=== PATIENT | male | born 1995 | race Caucasian/White ===

== ENCOUNTER 2017-01-21 20:16 | Emergency (ER) | payer SELFPAY ==
[~2017-01-21] VITALS: Ht 175.3 cm; Wt 56.7 kg
[2017-01-21 20:29] VITALS: BP 141/75
[2017-01-21] MEDS ORDERED: LIDOCAINE 1% / SOD BICARB 8.4% 20 ML VIAL. IJ ONE (20:34)
[2017-01-21] MEDS ORDERED: DIPHTH,PERTUSS(ACELL),TET TOX 0.5 ML DISP.SYRIN. VAX IM ONE (21:15)
--- NOTE | 2017-01-21 21:31 | PHYS DOC ---
Past Medical History Past Medical History: Other Additional Past Medical Histor: MOOD DISORDER Past Surgical History: No Surgical History Alcohol Use: None Drug Use: None Adult General Chief Complaint Chief Complaint: LACERATION/AVULSION HPI HPI Patient is a 21 year old presents with abrasions to both hands after punching a brick wall. Patient has minimal abrasions his left hand, but has multiple abrasions and laceration to his right hand specifically over his DIP joint of his middle finger. Tetanus status not up-to-date Review of systems: Constitutional: Denies fever or chills Eyes: Denies change in visual acuity, redness, or eye pain HENT: Denies nasal congestion or sore throat Respiratory: Denies cough or shortness of breath All other review systems negative except as documented in the history of present illness portion. Physical exam: Constitutional: Well developed, well nourished, no acute distress, non-toxic appearance. HENT: Normocephalic, atraumatic, bilateral external ears normal, nose normal. Eyes: PERRLA, EOMI, conjunctiva normal, no discharge. Neck: Normal range of motion, no tenderness, supple, no stridor. Cardiovascular:Heart rate regular rhythm, Lungs & Thorax: Bilateral breath sounds clear to auscultation Abdomen: Bowel sounds normal, soft, no tenderness, no masses, no pulsatile masses. Skin: Warm, dry, no erythema, no rash. Back: No tenderness, no CVA tenderness. Extremities: Multiple abrasions to right and left hand over all his knuckles. 3 center laceration over his DIP joint of his right hand, middle finger Neurologic: Alert and oriented X 3, normal motor function, normal sensory function, no focal deficits noted. Psychologic: Affect normal, judgement normal, mood normal. Assessment and plan Blunt trauma secondary to punching a brick wall. X-ray of right hand reveals no acute fracture. Patient's left handed superficial abrasions but no point bony tenderness and no swelling. No x-ray was obtained. She has full range of motion of all fingers. Patient has full range of motion of isolated DIP and PIP joints of all fingers of both hands. Assessment and plan\ Suture note: Laceration right middle finger, wound irrigated with approximately 200 mL of saline and soaked in soapy solution. 2 mL of buffered lidocaine were utilized to infiltrate the skin with adequate anesthesia obtained. 3 times 4-0 Ethilon sutures simple interrupted placed to the laceration to his DIP joint of his middle finger. Patient tolerated procedure well Patient's instructed to have a wound check in 2 days and to return to the ER in 10 days for suture removal. Tetanus status is updated. No indication for antibiotics at this time. Neosporin, clean wrap, aluminum/foam splint applied. Current Medications Current Medications Current Medications Medications (Trade) Dose Ordered Sig/[place] Start Time Stop Time Status Last Admin Dose Admin Diphtheria/ Tetanus/Acell Pertussis (Boostrix) 0.5 ml ONCE ONCE 01/21/17 21:15 01/21/17 21:16 DC Lidocaine/Sodium Bicarbonate (Buffered Lidocaine 1%) 20 ml STK-MED ONCE 01/21/17 20:34 01/21/17 20:35 DC Allergies Allergies Allergies Coded Allergies Type Severity Reaction Last Updated Verified Penicillins Allergy Intermediate 01/21/17 Yes Current Patient Data Vital Signs Vital Signs Date Time Temp Pulse Resp B/P (MAP) Pulse Ox O2 Delivery O2 Flow Rate FiO2 01/21/17 20:29 98.1 85 20 98 Room Air 98.1 EKG EKG [] Radiology/Procedures Radiology/Procedures [] Course & Med Decision Making Course & Med Decision Making Pertinent Labs and Imaging studies reviewed. (See chart for details) [] Dragon Disclaimer Dragon Disclaimer This electronic medical record was generated, in whole or in part, using a voice recognition dictation system. Departure Departure Impression: Primary Impression: Hand contusion Additional Impression: Laceration of middle finger of right hand without complication Disposition: 01 HOME, SELF-CARE Condition: IMPROVED Referrals: NO PCP (PCP) Patient Instructions: Hand Contusion, Sutured Wound Care Additional Instructions: Please follow up with your clinic/family doctor in 2 days for wound check. You will need to have your sutures removed in 10 days. Please leave splint on until sutures are removed. Problem Qualifiers RAKESH NEAL MD Jan 21, 2017 21:31
--- NOTE | 2017-01-22 08:37 | RAD ---
Three-view right hand study History: Punched brick wall with right fist. Pain Findings: No acute fracture or dislocation or osteolytic process is seen. There is a small focus of air within the medial soft tissues at the level of the distal fifth metacarpal bone. This could be related to a small laceration injury. In the oblique view, there is a tiny 1 mm linear radiopacity adjacent to the fifth proximal phalanx. A small foreign body is possible. IMPRESSION: No acute fracture. Possible small foreign body.
== END 2017-01-21 21:54 | disposition home or self-care (01) ==
LOC: ER 20:16
DX: S61.212A Laceration without foreign body of right middle finger without damage to nail, initial encounter (principal); S60.222A Contusion of left hand, initial encounter; S60.221A Contusion of right hand, initial encounter; Z88.0 Allergy status to penicillin; W22.8XXA Striking against or struck by other objects, initial encounter; Y93.89 Activity, other specified; Y92.89 Other specified places as the place of occurrence of the external cause; Y99.8 Other external cause status
CPT/HCPCS: 12002; 73130; 90471; 90715; 99284-25

== ENCOUNTER 2017-02-22 09:58 | Emergency (ER) | payer SELFPAY ==
[~2017-02-22] VITALS: Ht 175.3 cm; Wt 59.9 kg
--- NOTE | 2017-02-22 10:34 | RAD ---
Chest, 2 views, 02/22/2017: History: Syncope The heart size is normal. The lungs are clear. There is no evidence of pleural fluid. IMPRESSION: No acute cardiopulmonary abnormality is detected.
[2017-02-22 10:58] LABS: BASO # 0.1 x10^3/uL (0.0-0.2); BASO % 1 % (0-3); EOS % 3 % (0-3); HEMATOCRIT 47.5 % (39.0-53.0); HEMOGLOBIN 16.2 g/dL (13.0-17.5); LYMPH # 1.9 x10^3/uL (1.0-4.8); LYMPH % 29 % (24-48); MEAN CORPUSCULAR HEMOGLOBIN 31 pg (25-35); MEAN CORPUSCULAR HGB CONC 34 g/dL (31-37); MEAN CORPUSCULAR VOLUME 89 fL (79-100); MONO % 11 % (0-9); NEUT % 56 % (31-73); PLATELET COUNT 209 x10^3/uL (140-400); RED BLOOD COUNT 5.31 x10^6/uL (4.30-5.70); RED CELL DISTRIBUTION WIDTH 12.9 % (11.5-14.5); WHITE BLOOD COUNT 6.4 x10^3/uL (4.0-11.0)
[2017-02-22 11:08] LABS: CALCIUM 9.5 mg/dL (8.5-10.1); GFR 92.6; POTASSIUM 3.9 mmol/L (3.5-5.1)
--- NOTE | 2017-02-22 11:12 | PHYS DOC ---
Past Medical History Past Medical History: Other Additional Past Medical Histor: MOOD DISORDER Past Surgical History: No Surgical History Alcohol Use: None Drug Use: None Adult General Chief Complaint Chief Complaint: SYNCOPE HPI HPI Patient is a 21 year old male who presents with syncopal episode today. states he was walking at home when he felt lightheaded had brief loss of consciousness. Patient denies hitting his head, headache, neck pain. Denies palpitations, chest pain shortness of breath or any other symptoms prior to falling. Denies history of seizure disorder. No urinary incontinence. Denies biting tongue or lip. Patient denies history of hypoglycemia and a prior to episode. Patient also reports having a syncopal episode while at work yesterday. Similar in nature and not proceed with medical symptoms. Patient denies injury. No recent illnesses. No vomiting or diarrhea. No fever chills or sweats. No other acute symptoms or complaints. Patient is a current smoker, and drinks occasional alcohol. Denies drug use with exception of non-prescribed hydrocodone.[] Review of Systems Review of Systems Review symptoms as per history of present illness. All other review symptoms are negative. All other systems were reviewed and found to be within normal limits, except as documented in this note. Allergies Allergies Allergies Coded Allergies Type Severity Reaction Last Updated Verified Penicillins Allergy Intermediate 01/21/17 Yes Physical Exam Physical Exam Constitutional: Well developed, well nourished, no acute distress, non-toxic appearance. [] HENT: Normocephalic, atraumatic, bilateral external ears normal, oropharynx moist, no oral exudates, nose normal. [] Eyes: PERRLA, EOMI, conjunctiva normal, no discharge. [] Neck: Normal range of motion. [] Cardiovascular:Heart rate regular rhythm, no murmur [] Lungs & Thorax: Bilateral breath sounds clear to auscultation [] Abdomen: Bowel sounds normal, soft, no tenderness. [] Skin: Warm, dry, no erythema, no rash. [] Back: No tenderness. [] Extremities: No tenderness, ROM intact, no edema. [] Neurologic: Alert and oriented X 3, normal motor function, normal sensory function. [] Psychologic: Affect normal, judgement normal, mood normal. [] Current Patient Data Vital Signs Vital Signs Date Time Temp Pulse Resp B/P (MAP) Pulse Ox O2 Delivery O2 Flow Rate FiO2 02/22/17 12:40 52 115/69 (84) 100 Room Air 02/22/17 10:04 98.6 16 98.6 Lab Values Laboratory Tests Test 02/22/17 10:49 White Blood Count 6.4 x10^3/uL (4.0-11.0) Red Blood Count 5.31 x10^6/uL (4.30-5.70) Hemoglobin 16.2 g/dL (13.0-17.5) Hematocrit 47.5 % (39.0-53.0) Mean Corpuscular Volume 89 fL (79-100) Mean Corpuscular Hemoglobin 31 pg (25-35) Mean Corpuscular Hemoglobin Concent 34 g/dL (31-37) Red Cell Distribution Width 12.9 % (11.5-14.5) Platelet Count 209 x10^3/uL (140-400) Neutrophils (%) (Auto) 56 % (31-73) Lymphocytes (%) (Auto) 29 % (24-48) Monocytes (%) (Auto) 11 % (0-9) H Eosinophils (%) (Auto) 3 % (0-3) Basophils (%) (Auto) 1 % (0-3) Neutrophils # (Auto) 3.6 x10^3uL (1.8-7.7) Lymphocytes # (Auto) 1.9 x10^3/uL (1.0-4.8) Monocytes # (Auto) 0.7 x10^3/uL (0.0-1.1) Eosinophils # (Auto) 0.2 x10^3/uL (0.0-0.7) Basophils # (Auto) 0.1 x10^3/uL (0.0-0.2) Sodium Level 140 mmol/L (136-145) Potassium Level 3.9 mmol/L (3.5-5.1) Chloride Level 103 mmol/L (98-107) Carbon Dioxide Level 30 mmol/L (21-32) Anion Gap 7 (6-14) Blood Urea Nitrogen 10 mg/dL (8-26) Creatinine 1.0 mg/dL (0.7-1.3) Estimated GFR (Cockcroft-Gault) 92.6 BUN/Creatinine Ratio 10 (6-20) Glucose Level 74 mg/dL (70-99) Calcium Level 9.5 mg/dL (8.5-10.1) Total Bilirubin 0.4 mg/dL (0.2-1.0) Aspartate Amino Transferase (AST) 16 U/L (15-37) Alanine Aminotransferase (ALT) 18 U/L (16-63) Alkaline Phosphatase 88 U/L (46-116) Total Protein 7.7 g/dL (6.4-8.2) Albumin 3.9 g/dL (3.4-5.0) Albumin/Globulin Ratio 1.0 (1.0-1.7) Laboratory Tests 02/22/17 10:49 Laboratory Tests 02/22/17 10:49 EKG EKG EKG: Sinus rhythm, rate 61, no acute ST-T wave changes, QTC 370. EKG interpreted by me.[] Radiology/Procedures Radiology/Procedures [Chest x-ray: No acute cardiopulmonary disease per radiology report.] Course & Med Decision Making Course & Med Decision Making Pertinent Labs and Imaging studies reviewed. (See chart for details) [Patient with normal orthostatic vital signs, lab and EKG and physical exam. ] Dragon Disclaimer Dragon Disclaimer This electronic medical record was generated, in whole or in part, using a voice recognition dictation system. Departure Departure Impression: Primary Impression: Syncope Disposition: 01 HOME, SELF-CARE Condition: GOOD Referrals: NO PCP (PCP) HORTENCIA ROJAS DO Feb 22, 2017 11:12
--- NOTE | 2017-02-22 11:13 | EKG ---
[facility] [address] [place] [address] Test Date: 2017-02-22 Test Time: 10:09:19 Pat Name: TRACI ALTAMIRANO Department: Room: Gender: M Cook Pie: : 1995 Requested By: HORTENCIA ROJAS Order Number: [id number] Reading MD: Kishor Archibald Measurements Intervals [place] Rate: 61 P: 53 [place]: 146 QRS: 51 QRSD: 100 T: 39 QT: 366 QTc: 370 Interpretive Statements SINUS RHYTHM QRS(T) CONTOUR ABNORMALITY CONSIDER ANTERIOR MYOCARDIAL DAMAGE POSSIBLE REPOLARIZATION POSSIBLY ABNORMAL ECG RI6.01 No previous ECG available for comparison Electronically Signed On 02-22-2017 16:07:51 DISTRESSER by Kishor Archibald
[2017-02-22 11:15] LABS: ALBUMIN 3.9 g/dL (3.4-5.0); TOTAL BILIRUBIN 0.4 mg/dL (0.2-1.0); TOTAL PROTEIN 7.7 g/dL (6.4-8.2)
--- NOTE | 2017-02-22 12:17 | RAD ---
CT head without contrast 02/22/2017 Clinical indication: Headache, syncope. Comparison: None. Technique: Multiple CT images of the head were obtained without contrast according to standard protocol. RS Compliance Statement: One or more of the following individualized dose reduction techniques were utilized for this examination: 1. Automated exposure control 2. Adjustment of the mA and/or kV according to patient size 3. Use of iterative reconstruction technique Findings: Examination of the left temporal lobe tip and left posterior fossa somewhat limited due to artifact from left earring. No acute intracranial hemorrhage or extra-axial fluid collection. No midline shift. The ventricles and subarachnoid spaces are normal in size and configuration. The christianson-white matter interfaces are maintained. The basal cisterns are patent. Impression: No acute intracranial hemorrhage.
[2017-02-22 12:40] VITALS: BP 115/69
== END 2017-02-22 13:15 | disposition home or self-care (01) ==
LOC: ER 09:58
DX: R55 Syncope and collapse (principal); Z88.0 Allergy status to penicillin
CPT/HCPCS: 36415; 70450; 71020; 80053; 85025; 93005; 99285-25

== ENCOUNTER 2019-10-26 04:59 | Emergency (ER) | payer SELFPAY ==
[~2019-10-26] VITALS: Ht 175.3 cm; Wt 62.7 kg
[2019-10-26 05:25] VITALS: BP 139/75
[2019-10-26] MEDS ORDERED: HYDR-3164 PO (05:38)
[2019-10-26] MEDS ORDERED: CLIN300C8 PO (05:38)
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
== END 2019-10-26 06:21 | disposition home or self-care (01) ==
LOC: ER 04:59
DX: S00.83XA Contusion of other part of head, initial encounter (principal); K08.89 Other specified disorders of teeth and supporting structures; F39 Unspecified mood [affective] disorder; F17.200 Nicotine dependence, unspecified, uncomplicated; Z88.0 Allergy status to penicillin; Y08.89XA Assault by other specified means, initial encounter; Y93.89 Activity, other specified; Y92.89 Other specified places as the place of occurrence of the external cause; Y99.8 Other external cause status
CPT/HCPCS: 99283

== ENCOUNTER 2020-08-26 04:48 | Emergency (ER) | payer SELFPAY ==
[~2020-08-26] VITALS: Ht 175.3 cm; Wt 62.6 kg
[~2020-08-26 04:48] MED LIST: CLIN300C9 PO; HYDR-3164 PO
[2020-08-26 06:05] VITALS: BP 135/74
[2020-08-26] MEDS ORDERED: FLUORESCEIN OPHTH TEST STRIP. OS ONE (06:15)
[2020-08-26] MEDS ORDERED: TETRACAINE 0.5% OPHTH SOLUTION 4ML BOTTLE. OS ONE (06:15)
--- NOTE | 2020-08-26 06:18 | PHYS DOC ---
Past Medical History Past Medical History: No Pertinent History, Other Additional Past Medical Histor: MOOD DISORDER Past Surgical History: No Surgical History Smoking Status: Current Every Day Smoker Alcohol Use: None Drug Use: None General Adult EDM: Chief Complaint: EYE PROBLEMS HPI: HPI: This is a pleasant 25-year-old male who presents emergency department today with left eye pain. On Monday he was getting something out of the cupboard when he accidentally slipped and reports hitting himself in the eye. He was feeling fine for the last few days but this morning woke up with redness and burning nonradiating mild pain which is worse with light. He describes redness of the conjunctiva. He has some mild swelling and some yellow drainage from the eye. He denies any nausea vomiting fevers chills. He denies a headache. He denies chest pain shortness of breath nuchal rigidity or any other symptoms. Review of systems negative for chest pain shortness of breath abdominal pain vomiting diaphoresis fevers chills nuchal rigidity or any rashes. All other review of systems negative. ED course: 25-year-old male presenting with left eye pain with erythema of the conjunctiva suggestive of acute conjunctivitis. Fluorescein test and pressure was obtained. pt has an abrasion in t he 3 oclock region not on top of the field of vision. Pressure 9 and 11 obtained. Visual acuities are 20/40 in the right eye, 20/70 in the left eye and 20/40 in both eyes. Otherwise the remainder the eye exam is unremarkable. Will discharge with erythromycin ointment and follow- up with ophthalmology in 1 to 2 days. Review of Systems: Review of Systems: Constitutional: Denies fever or chills. [] Eyes: Denies change in visual acuity. HENT: Denies nasal congestion or sore throat. [] Respiratory: Denies cough or shortness of breath. [] Cardiovascular: Denies chest pain or edema. [] GI: Denies abdominal pain, nausea, vomiting, bloody stools or diarrhea. [] : Denies dysuria. [] Musculoskeletal: Denies back pain or joint pain. [] Integument: Denies rash. [] Neurologic: Denies headache, focal weakness or sensory changes. [] Endocrine: Denies polyuria or polydipsia. [] Lymphatic: Denies swollen glands. [] Psychiatric: Denies depression or anxiety. [] Heart Score: C/O Chest Pain: No Risk Factors: Risk Factors: DM, Current or recent (<one month) smoker, HTN, HLP, family history of CAD, obesity. Risk Scores: Score 0 - 3: 2.5% MACE over next 6 weeks - Discharge Home Score 4 - 6: 20.3% MACE over next 6 weeks - Admit for Clinical Observation Score 7 - 10: 72.7% MACE over next 6 weeks - Early Invasive Strategies Current Medications: Current Medications Medications (Trade) Dose Ordered Sig/[place] Start Time Stop Time Status Last Admin Dose Admin Fluorescein Sodium (Ful-Judi) 1 strip 1X ONCE 08/26/20 06:15 08/26/20 06:16 UNV Tetracaine HCl (Tetracaine) 1 drop 1X ONCE 08/26/20 06:15 08/26/20 06:16 UNV Allergies: Allergies: Allergies Coded Allergies Type Severity Reaction Last Updated Verified Penicillins Allergy Intermediate 01/21/17 Yes Physical Exam: PE: Constitutional: Well developed, well nourished, no acute distress, non-toxic appearance. [] HENT: Normocephalic, atraumatic, bilateral external ears normal, oropharynx moist, no oral exudates, nose normal. [] Eyes: Eye exam: Visual acuity as above Visual farrar within normal limits External exam: No lacerations erythema swelling exophthalmos hordeolum or blepharitis. Extraocular movements intact without pain Pupils: Equal round and reactive to light Pressure: Normal Conjunctiva is erythematous with clear drainage on examination Cornea: 3mm ulcerations in the 3 oclock region not inside the field of vision. No foreign bodies. Neck: Normal range of motion, no tenderness, supple, no stridor. [] Cardiovascular:Heart rate regular rhythm, no murmur [] Lungs & Thorax: Bilateral breath sounds clear to auscultation [] Abdomen: Bowel sounds normal, soft, no tenderness, no masses, no pulsatile masses. [] Skin: Warm, dry, no erythema, no rash. [] Back: No tenderness, no CVA tenderness. [] Extremities: No tenderness, no cyanosis, no clubbing, ROM intact, no edema. [] Neurologic: Alert and oriented X 3, normal motor function, normal sensory function, no focal deficits noted. [] Psychologic: Affect normal, judgement normal, mood normal. [] EKG: EKG: [] Radiology/Procedures: Radiology/Procedures: [] Course & Med Decision Making: Course & Med Decision Making Pertinent Labs and Imaging studies reviewed. (See chart for details) [] [place] Disclaimer: Kindra Disclaimer: This electronic medical record was generated, in whole or in part, using a voice recognition dictation system. Departure Departure Impression: Primary Impression: Conjunctivitis Disposition: HOME / SELF CARE / HOMELESS Condition: STABLE Referrals: NO PCP (PCP) Patient Instructions: Conjunctivitis (Viral and Bacterial) Additional Instructions: EMERGENCY DEPARTMENT GENERAL DISCHARGE INSTRUCTIONS Follow-up with an eye doctor in 1 to 2 days. Return to the emergency department if you have any new or concerning findings. Thank you for coming to [facility] Emergency Department (ED) today and trusting us with you care. We trust that you had a positive experience in our Emergency Department. If you wish to speak to the department management, you may call the Director at [phone]. Follow up is important in emergency/acute care visits. This condition should be evaluated by your primary care physician and any necessary consulting services for continued management within a few days (1-2) after discharge. Return to the emergency department if you have any new or concerning symptoms including but not limited to fever, chills, nausea, vomiting, intractable pain, any new rashes, chest pain, shortness of breath, uncontrolled bleeding, difficulty breathing, and/or vision loss. 1. Do you have a private Doctor? If you do not have a private doctor, please ask for a resource list of physicians or clinics that may be able to assist you with follow up care. 2. If a lab test or culture has been done and does not come back immediately, your results will be reviewed and you will be notified if you need a change in treatment. 3. Your care today has been supervised by a physician who is specially trained in emergency care. Many problems require more than one evaluation for a complete diagnosis and treatment. We recommend that you schedule your follow up appointment as recommended to ensure complete treatment of you illness or injury. If you are unable to obtain follow up care and continue to have a problem, or if your condition worsens, we recommend that you return to the ED. 4. We are not able to safely determine your condition over the phone nor are we able to give sound medical advice over the phone. For these safety reasons, if you call for medical advice we will ask you to come to the ED for further evaluation. IF YOUR SYMPTOMS WORSEN OR NEW SYMPTOMS DEVELOP, OR YOU HAVE CONCERNS ABOUT YOUR CONDITION; OR IF YOUR CONDITION WORSENS WHILE YOU ARE WAITING FOR YOUR FOLLOW UP APPOINTMENT; EITHER CONTACT YOUR PRIMARY CARE DOCTOR, THE PHYSICIAN WHOSE NAME AND NUMBER YOU WERE GIVEN, OR RETURN TO THE ED IMMEDIATELY. Scripts Erythromycin Base (Erythromycin) 1 Gm Oint...g. 1 GM OP QID for 5 Days, #[address] ~1 cm ribbon on affected eye Prov: TRAY SANCHEZ MD 08/26/20 TRAY SANCHEZ MD August 26, 2020 06:18
[2020-08-26] MEDS ORDERED: ERYT1OIN6 OP (06:38)
== END 2020-08-26 06:55 | disposition home or self-care (01) ==
LOC: ER 04:48
DX: H10.9 Unspecified conjunctivitis (principal); F17.200 Nicotine dependence, unspecified, uncomplicated; Z88.0 Allergy status to penicillin
CPT/HCPCS: 99283